=== PATIENT | female | born 1980 | race Caucasian/White ===

== ENCOUNTER 2022-04-25 00:22 | Emergency (ER) | payer OTHER ==
[~2022-04-25] VITALS: Ht 165.1 cm; Wt 146.5 kg
[~2022-04-25 00:22] MED LIST: AMOXICILLIN500 M2 PO; BENADRYL25 MG PO; FLAGYL500 MG PO; HYDROCODONE BIT1 T11 PO; IBU800 M1 PO; MOTRIN800 MG PO; NKHM; PEN-VEE K500 MG PO; PENICILLIN VK500 MG PO; PHENERGAN25 M1 PO; PREDNICOT20 MG PO; Peridex 473 ML473 ML PO; TYLENOL W/CODEI1 TA2 PO; ZANTAC 150150 MG PO
[2022-04-25] MEDS ORDERED: PREDNISONE10 MG PO (01:17)
== END 2022-04-25 01:30 | disposition home or self-care (01) ==
LOC: ED 00:22
DX: M54.42 Lumbago with sciatica, left side (principal); F17.200 Nicotine dependence, unspecified, uncomplicated; Z90.49 Acquired absence of other specified parts of digestive tract; Z90.89 Acquired absence of other organs